=== PATIENT | male | born 1965 | race Caucasian/White ===

== ENCOUNTER 2021-10-11 01:20 | Emergency (ER) | payer OTHER ==
[2021-10-11] MEDS ORDERED: IPRATROPIUM/ALBUTEROL 3 ML NEB INH STA ×2 (01:27→01:34)
[2021-10-11] MEDS ORDERED: methylPREDNISolone SUCCINATE 125 MG/2 ML VIAL IVP STA (01:35)
[2021-10-11] MEDS ORDERED: ALBUTEROL NEB 2.5 MG/3 ML INH STA (01:38)
[2021-10-11] MEDS ORDERED: IPRATROPIUM/ALBUTEROL 3 ML NEB INH ONE (01:38)
[2021-10-11 01:57] LABS: BASOPHILS % (AUTO) 0.8 %; HCT - HEMATOCRIT 51.8 % (42.0-52.0); HGB - HEMOGLOBIN 17.9 g/dL (14.0-18.0); LYMPHOCYTES % (AUTO) 30.1 %; MEAN CORPUSCULAR HEMOGLOBIN 31.7 pg (27.0-31.0); MEAN CORPUSCULAR HGB CONC 34.6 g/dL (32.0-36.0); MEAN CORPUSCULAR VOLUME 91.7 fL (80.0-94.0); MEAN PLATELET VOLUME 9.3 fL (7.4-11.4); MONOCYTES % (AUTO) 7.6 %; NEUTROPHILS % (AUTO) 50.2 %; PLT - PLATELET COUNT 245 10^3/uL (130-450); RED BLOOD COUNT 5.65 10^6/uL (4.70-6.10); RED CELL DISTRIBUTION WIDTH 11.8 % (12.0-15.0); WHITE BLOOD COUNT 10.1 x10^3/uL (4.8-10.8)
[2021-10-11 02:00] LABS: ABNORMAL LYMPHS % (MANUAL) 0 %; BAND NEUTROPHILS % (MANUAL) 0 %
[2021-10-11 02:09] LABS: ALBUMIN 4.8 g/dL (3.2-5.5); ALBUMIN/GLOBULIN RATIO 1.6 (1.0-2.2); BILIRUBIN,TOTAL 0.8 mg/dL (0.2-1.0); CALCIUM 9.6 mg/dL (8.5-10.3); POTASSIUM 3.8 mmol/L (3.5-5.0); TOTAL PROTEIN 7.8 g/dL (6.7-8.2)
[2021-10-11] MEDS: ALBUTEROL NEB 2.5 MG/3 ML INH STA (02:12)
[2021-10-11] MEDS ORDERED: ALBUTEROL NEB 2.5 MG/3 ML INH ONE (02:19)
[2021-10-11 02:43] LABS: DIFFERENTIAL COMMENT MANUAL DIFFERENTIAL; EOSINOPHILS # (MANUAL) 1.3 10^3/uL (0-0.7); LYMPHOCYTES # (MANUAL) 3.1 10^3/uL (1.5-3.5); LYMPHOCYTES % (MANUAL) 31 %; MONOCYTES # (MANUAL) 0.7 10^3/uL (0.0-1.0); NEUTROPHILS # (MANUAL) 4.9 10^3/uL (1.5-6.6); PLATELET ESTIMATE, MANUAL NORMAL (130-450,000) (NORMAL); PLATELET MORPHOLOGY NORMAL APPEARANCE (NORMAL); RBC MORPHOLOGY (MULTIPLE) NORMAL APPEARANCE (NORMAL); WBC MORPHOLOGY (MULTIPLE) NORMAL APPEARANCE (NORMAL)
--- NOTE | 2021-10-11 03:23 | ED Physician Documentation ---
History of Present Illness - Stated complaint Stated Complaint: SOA - Chief complaint Chief Complaint: Resp - History obtained from History obtained from: Patient - Additonal information Additional information: Patient is a 56-year-old with a history significant for Asthma in childhood, previous tobacco abuse presenting for evaluation of shortness of breath. Patient reports symptoms have been ongoing for the last month with no improvement with inhaler use. This evening he bathed his cat and does have cat allergies and his breathing became worse. Patient reports that during this time of year his breathing Becomes worse With the pollen. Reports nonproductive cough. He denies chest pain, fever, abdominal pain, vomiting or diarrhea. He has not smoked in several years. He does not use home oxygen.He has been vaccinated for COVID-19. Review of Systems Constitutional: denies: Fever Nose: denies: Congestion Throat: denies: Sore throat Cardiac: denies: Chest pain / pressure Respiratory: reports: Dyspnea, Cough GI: denies: Abdominal Pain, Vomiting : denies: Dysuria Skin: denies: Rash Musculoskeletal: denies: Back pain Neurologic: denies: Headache PD PAST MEDICAL HISTORY - Past Medical History Past Medical History: Yes Cardiovascular: None Respiratory: Asthma Neuro: None Endocrine/Autoimmune: None GI: None : None HEENT: None Psych: None Musculoskeletal: None Derm: None - Present Medications Home Medications: Ambulatory Orders Medication Instructions Recorded Confirmed Albuterol Sulf [Ventolin Hfa 1 - 2 puffs INH Q4HR PRN #1 inhaler 10/11/21 Inhaler] predniSONE [Deltasone] 60 mg PO DAILY 5 Days #15 tablet 10/11/21 - Allergies Allergies/Adverse Reactions: Allergies Allergy/AdvReac Type Severity Reaction Status Date / Time No Known Drug Allergies Allergy Verified 10/11/21 01:30 - Social History Does the pt smoke?: No Smoking Status: Never smoker Does the pt have substance abuse?: No - Immunizations Immunizations are current?: No - POLST Patient has POLST: No PD ED PE NORMAL - General General: Alert and oriented X 3, Other (Tachypneic, Mild distress). No: No acute distress - HEENT HEENT: Atraumatic, Pharynx benign - Neck Neck: Supple, no meningeal sign - Cardiac Cardiac: No murmur, Strong equal pulses, Other (Tachycardic, regular rhythm) - Respiratory Respiratory: Other (Tachypneic mild respiratory distress,Significant wheezing throughout lung jordan with poor air entry). No: No respiratory distress, Clear bilaterally - Abdomen Abdomen: Normal bowel sounds, Soft, Non tender - Derm Derm: No rash - Extremities Extremities: No edema - Neuro Neuro: No motor deficit, Normal speech - Psych Psych: Normal mood, Normal affect Results - Vitals Vitals: Vital Signs - 24 hr 10/11/21 10/11/21 10/11/21 01:26 01:30 01:38 Temperature 35.9 C L Heart Rate 124 H 119 H 126 H Respiratory 25 H 20 23 Rate Blood Pressure 193/102 H 193/102 H O2 Saturation 88 L 91 L 10/11/21 10/11/21 10/11/21 01:53 02:02 02:12 Temperature Heart Rate 125 H 125 H 128 H Respiratory 22 26 H 26 H Rate Blood Pressure O2 Saturation 95 10/11/21 10/11/21 10/11/21 02:13 02:47 02:56 Temperature Heart Rate 128 H 116 H 115 H Respiratory 24 19 17 Rate Blood Pressure 143/100 H O2 Saturation 95 94 92 10/11/21 10/11/21 10/11/21 02:57 03:24 04:00 Temperature Heart Rate 115 H 111 H 101 H Respiratory 18 20 Rate Blood Pressure 143/100 H 142/95 H 153/91 H O2 Saturation 93 92 93 10/11/21 10/11/21 04:10 04:12 Temperature 36.1 C L Heart Rate Respiratory 20 Rate Blood Pressure O2 Saturation Oxygen O2 Source Room air Oxygen Flow Rate 3 - EKG (time done) 0220 Rate: Rate (enter#) (123) Rhythm: Sinus tachycardia [place]: Normal Ischemia: No: ST elevation c/w ischemia Compare to prior EKG: Old EKG unavailable - Labs Labs: Laboratory Tests 10/11/21 10/11/21 10/11/21 01:52 01:52 01:52 WBC 10.1 RBC 5.65 Hgb 17.9 Hct 51.8 MCV 91.7 MCH 31.7 H MCHC 34.6 RDW 11.8 L Plt Count 245 MPV 9.3 Neut # (Auto) Not Reportable Lymph # (Auto) Not Reportable [place] # (Auto) Not Reportable Eos # (Auto) Not Reportable Baso # (Auto) Not Reportable Absolute Nucleated RBC Not Reportable Total Counted 100 Band Neuts % (Manual) 0 Abnorm Lymph % (Manual) 0 Nucleated RBC % Not Reportable Neutrophils # (Manual) 4.9 Lymphocytes # (Manual) 3.1 Monocytes # (Manual) 0.7 Eosinophils # (Manual) 1.3 H Basophils # (Manual) 0.0 Differential Comment MANUAL DIFFERENTIAL WBC Morphology NORMAL APPEARANCE Platelet Estimate NORMAL (130-450,000) Platelet Morphology NORMAL APPEARANCE RBC Morph Micro Appear NORMAL APPEARANCE Sodium 139 Potassium 3.8 Chloride 101 Carbon Dioxide 24 Anion Gap 14.0 H BUN 17 Creatinine 1.0 Estimated GFR (MDRD) 77 L Glucose 127 H Calcium 9.6 Total Bilirubin 0.8 AST 34 ALT 40 Alkaline Phosphatase 85 Troponin I High Sens 18.9 Total Protein 7.8 Albumin 4.8 Globulin 3.0 Albumin/Globulin Ratio 1.6 SARS-CoV-2 (PCR) 10/11/21 02:32 WBC RBC Hgb Hct MCV MCH MCHC RDW Plt Count MPV Neut # (Auto) Lymph # (Auto) [place] # (Auto) Eos # (Auto) Baso # (Auto) Absolute Nucleated RBC Total Counted Band Neuts % (Manual) Abnorm Lymph % (Manual) Nucleated RBC % Neutrophils # (Manual) Lymphocytes # (Manual) Monocytes # (Manual) Eosinophils # (Manual) Basophils # (Manual) Differential Comment WBC Morphology Platelet Estimate Platelet Morphology RBC Morph Micro Appear Sodium Potassium Chloride Carbon Dioxide Anion Gap BUN Creatinine Estimated GFR (MDRD) Glucose Calcium Total Bilirubin AST ALT Alkaline Phosphatase Troponin I High Sens Total Protein Albumin Globulin Albumin/Globulin Ratio SARS-CoV-2 (PCR) NOT DETECTED PD MEDICAL DECISION MAKING - ED course Complexity details: reviewed results, re-evaluated patient, d/w patient ED course: Patient presenting in respiratory distress with tachypnea, significant wheezing and labored breathing. Patient was given numerous rounds of nebs with improvement in his symptoms. Patient shortly required oxygen but was able to ambulate without drop in oxygen saturation below 92%. Patient felt significantly better. Labs were reassuring without significant abnormalities. No leg swelling or other known risk factors for PE or DVT. Chest x-ray is clear. Patient's trigger for this episode appears to be related to bathing his cat which she has known allergies to.Denies change in sputum or increase in sputum to suggest need for antibiotics. Patient is given prescriptions for prednisone and albuterol and counseled on need for close follow-up with his primary care doctor. Departure - Departure Disposition: 01 Home, Self Care Clinical Impression: COPD exacerbation Condition: Stable Instructions: ED COPD Flare Prescriptions: Albuterol Sulf [Ventolin Hfa Inhaler] 1 - 2 puffs INH Q4HR PRN #1 inhaler PRN Reason: Shortness Of Air/Wheezing predniSONE [Deltasone] 60 mg PO DAILY 5 Days #15 tablet Comments: Ryan Davis you were evaluated for difficulty breathing which I believe is related to a COPD exacerbation. COPD is similar to asthma. It responds well to breathing treatments or inhalers and oral steroids. Your labs were overall very reassuring and your COVID test was negative. Your heart did not show signs of stress. Your symptoms improved with the treatments given and at this time you do not need to be hospitalized. However you should continue taking the steroids for the next 5 days and a prescription has been sent to the [facility] in [place]. I have also sent an inhaler to this pharmacy.You need close follow-up with your primary care doctor through the [place]. If it anytime you feel that your breathing is becoming worse or you have any new symptoms such as chest pain, fever, any concerns, return to the emergency department. Please consider calling 911 and not [address] yourself. Discharge Date/Time: 10/11/21 04:25
[2021-10-11 04:11] VITALS: BP 153/91
--- NOTE | 2021-10-11 09:30 | XRAY Report ---
PROCEDURE: Chest 1 View X-Ray INDICATIONS: SOB TECHNIQUE: One view of the chest was acquired. COMPARISON: None. FINDINGS: Surgical changes and devices: None. Lungs and pleura: No pleural effusions or pneumothorax. Mild interstitial prominence. Lungs are lizz r. Mediastinum: Mediastinal contours appear normal. Heart size is normal. Bones and chest wall: No suspicious bony lesions. Overlying soft tissues appear unremarkable. IMPRESSION: No acute cardiopulmonary disease. No significant discrepancy with the preliminary interpretation. Reviewed by: Cheryl Powers MD on 10/11/2021 8:28 AM [facility] Approved by: Cheryl Powers MD on 10/11/2021 8:28 AM [facility] Station ID: [id number]
== END 2021-10-11 04:25 | disposition home or self-care (01) ==
LOC: ED 01:20
DX: J44.1 Chronic obstructive pulmonary disease with (acute) exacerbation (principal)
CPT/HCPCS: 36415; 80053; 84484; 85025; 93005; 94640; 96374; 99284

== ENCOUNTER 2023-06-07 09:34 | Emergency (ER) | payer OTHER ==
--- NOTE | 2023-06-07 09:55 | ED Physician Documentation ---
History of Present Illness - Stated complaint Stated Complaint: HIGH BP,MED REFILL - Chief complaint Chief Complaint: General - History obtained from History obtained from: Patient - History of Present Illness Timing: How many days ago (ran out of BP med 3 days ago but was taking half tablet for week prior due to running out. Trying to get appt with new PCP but insurance not effective as yet.) Review of Systems Musculoskeletal: denies: Extremity swelling Neurologic: denies: Generalized weakness, Headache PD PAST MEDICAL HISTORY - Past Medical History Cardiovascular: Hypertension Respiratory: Asthma Neuro: None Endocrine/Autoimmune: None GI: None : None HEENT: None Psych: None Musculoskeletal: None Derm: None - Past Surgical History Past Surgical History: Yes - Present Medications Home Medications: Ambulatory Orders Medication Instructions Recorded Confirmed Losartan [Cozaar] 50 mg PO DAILY #90 tablet 04/01/23 06/07/23 Albuterol Sulf [Ventolin Hfa 1 - 2 puffs INH Q4HR PRN #1 each 06/07/23 Inhaler] Losartan [Cozaar] 50 mg PO DAILY #90 tablet 06/07/23 - Allergies Allergies/Adverse Reactions: Allergies Allergy/AdvReac Type Severity Reaction Status Date / Time No Known Drug Allergies Allergy Verified 06/07/23 09:47 - Social History Does the pt smoke?: No Smoking Status: Never smoker Does the pt drink ETOH?: No Does the pt have substance abuse?: No - Immunizations Immunizations are current?: Yes - POLST Patient has POLST: No PD ED PE NORMAL - Vitals Vital signs reviewed: Yes - General General: Alert and oriented X 3, No acute distress, Well developed/nourished - Extremities Extremities: Normal ROM s pain - Neuro Neuro: Alert and oriented X 3, No motor deficit, Normal speech Results - Vitals Vitals: Vital Signs - 24 hr 06/07/23 06/07/23 09:40 10:42 Temperature 36.6 C Heart Rate 68 66 Respiratory 16 18 Rate Blood Pressure 189/98 H 170/102 H O2 Saturation 97 96 Oxygen O2 Source Room air PD Medical Decision Making - ED course Complexity details: considered differential (ran out of BP meds and not having new PCP yet due to insurance changes, and then will have appt time. Give Rx for his med as well as Albuterol MDI for intermittent wheeze/RAD. ), d/w patient Departure - Departure Disposition: 01 Home, Self Care Clinical Impression: Hypertension, Asthma, Difficulty refilling prescriptions Condition: Stable Record reviewed to determine appropriate education?: Yes Prescriptions: Albuterol Sulf [Ventolin Hfa Inhaler] 1 - 2 puffs INH Q4HR PRN #1 each PRN Reason: Shortness Of Air/Wheezing Losartan [Cozaar] 50 mg PO DAILY #90 tablet Comments: Use albuterol inhaler 2 to 3 puffs every 4-6 hours if needed for wheezing/asthma. Continue with your losartan medication daily for blood pressure as usual. Continue with your good healthy habits of exercise and low-salt diet and healthy eating. Good for you. Follow-up with the new primary care as your new insurances allow etc. I sent your prescription to the [facility] pharmacy in [place]. Forms: PCP List Discharge Date/Time: 06/07/23 10:43
[2023-06-07] MEDS ORDERED: LOSARTAN 50 MG TABLET PO STA (10:31)
[2023-06-07 10:45] VITALS: BP 170/102; O2SAT 96
== END 2023-06-07 10:43 | disposition home or self-care (01) ==
LOC: ED 09:34
DX: Z76.0 Encounter for issue of repeat prescription (principal); I10 Essential (primary) hypertension; T46.5X6A Underdosing of other antihypertensive drugs, initial encounter; Z91.128 Patient's intentional underdosing of medication regimen for other reason; J45.909 Unspecified asthma, uncomplicated
CPT/HCPCS: 99282; 99283; A9270

== ENCOUNTER 2023-07-22 16:59 | Emergency (ER) | payer OTHER ==
--- NOTE | 2023-07-22 17:26 | ED Physician Documentation ---
PD HPI DYSPNEA - Stated complaint Stated Complaint: HIGH BP - Chief complaint Chief Complaint: General - History obtained from History obtained from: Patient - History of Present Illness Timing - onset: How many days ago (has noted BP to be more elevated the past several days. Today was 193 systolic. No chest pain nor headache. He says he gets ringing in ears when it it high and did have that. He had tried reducing his Losartan due to running out. Does not yet have new insurance to get new PCP.) Timing - onset during: Rest, Light activity Timing - details: Waxing and waning Inciting event(s): Out of meds. No: URI Associated symptoms: Wheezing. No: Chest pain / discomfort, Palpitations, Bilateral edema Similar symptoms before: Diagnosis (elevated BP and recent ED visit for same and was improved on new BP med. Uses Albuterol nhaler PRN with good effect too. Trying to get new PCP but can't until new insuracne from [place] starts. Shoulde be mid August.) Review of Systems Eyes: denies: Decreased vision Cardiac: denies: Chest pain / pressure, Palpitations Respiratory: denies: Dyspnea Musculoskeletal: denies: Extremity swelling PD PAST MEDICAL HISTORY - Past Medical History Cardiovascular: Hypertension Respiratory: Asthma Neuro: None Endocrine/Autoimmune: None GI: None : None HEENT: None Psych: None Musculoskeletal: None Derm: None - Past Surgical History Past Surgical History: Yes - Present Medications Home Medications: Ambulatory Orders Medication Instructions Recorded Confirmed Albuterol Sulf [Ventolin Hfa 1 - 2 puffs INH Q4HR PRN #1 each 06/07/23 07/22/23 Inhaler] Losartan [Cozaar] 50 mg PO DAILY #90 tablet 06/07/23 07/22/23 Albuterol Sulf [Ventolin Hfa 2 - 3 puffs INH Q4HR PRN #1 each 07/22/23 Inhaler] Losartan [Cozaar] 50 mg PO BID #90 tablet 07/22/23 Albuterol Sulf [Ventolin Hfa 2 puffs INH QID PRN #1 each 07/23/23 Inhaler] - Allergies Allergies/Adverse Reactions: Allergies Allergy/AdvReac Type Severity Reaction Status Date / Time No Known Drug Allergies Allergy Verified 07/22/23 17:08 - Social History Does the pt smoke?: No Smoking Status: Never smoker Does the pt drink ETOH?: No Does the pt have substance abuse?: No - Immunizations Immunizations are current?: Yes - POLST Patient has POLST: No PD ED PE NORMAL - Vitals Vital signs reviewed: Yes (BP has decreassed without intervention here. Now 162/93.) - General General: Alert and oriented X 3, No acute distress, Well developed/nourished - Cardiac Cardiac: RRR, No murmur - Respiratory Respiratory: No respiratory distress - Derm Derm: Normal color, Warm and dry - Extremities Extremities: No edema - Neuro Neuro: Alert and oriented X 3, No motor deficit, Normal speech Results - Vitals Vitals: Oxygen O2 Source Room air PD Medical Decision Making - ED course Complexity details: considered differential (elevated BP. Was running low on meds so cut to half dose with BP more elevated. Was 130-140s with 100 mg daily. Can give Rx for him again until seen by PCP who can take over. ), d/w patient Departure - Departure Disposition: 01 Home, Self Care Clinical Impression: Hypertension Qualifiers: Hypertension type: unspecified Qualified Code(s): I10 - Essential (primary) hypertension Condition: Stable Record reviewed to determine appropriate education?: Yes Prescriptions: Albuterol Sulf [Ventolin Hfa Inhaler] 2 - 3 puffs INH Q4HR PRN #1 each PRN Reason: Shortness Of Air/Wheezing Losartan [Cozaar] 50 mg PO BID #90 tablet Albuterol Sulf [Ventolin Hfa Inhaler] 2 puffs INH QID PRN #1 each PRN Reason: Shortness Of Air/Wheezing Comments: Your blood pressure has come down with your medications from home. Most recent 1 was 151/99. It would seem that you should continue with the 100 mg of losartan for best blood pressure control. Number to refill prescription for you and sent it to your preferred pharmacy. I also wrote for your albuterol inhaler. Presumably your insurance will allow for obtaining a longitudinal primary care provider in the near future and have them continue with the medications and treatment plans. Return if needed. Low-salt diet and moderation in alcohol. Forms: PCP List Discharge Date/Time: 07/22/23 17:55
[2023-07-22 17:58] VITALS: BP 157/99; O2SAT 96
== END 2023-07-22 17:55 | disposition home or self-care (01) ==
LOC: ED 16:59
DX: I10 Essential (primary) hypertension (principal)
CPT/HCPCS: 99282; 99283

== ENCOUNTER 2023-11-25 15:55 | Emergency (ER) | payer OTHER ==
[2023-11-25 16:06] VITALS: BP 180/90; O2SAT 96
--- NOTE | 2023-11-25 16:51 | ED Physician Documentation ---
History of Present Illness - Stated complaint Stated Complaint: MED REFILL - Chief complaint Chief Complaint: General - History obtained from History obtained from: Patient - Additonal information Additional information: The patient comes to the emergency department chief complaint of needing a refill on his losartan. He takes 50 mg once daily for high blood pressure. He states it controls his blood pressure fairly well and keeps his systolic in the 130s and his diastolic in the 80s. He has been transitioning from the and states that he has been having a problem with his benefits. He has had to come here for his blood pressure meds to other times but he just got a new job a few months ago and is almost through the 90-day. Of getting established with his insurance. He states that after that he will be able to get a primary doctor. He states that right now the NH has him going to [place] which is difficult. No chest pain or shortness of breath. No headache. The patient st ates symptomatically he feels good. PD PAST MEDICAL HISTORY - Past Medical History Past Medical History: Yes Cardiovascular: Hypertension Respiratory: Asthma Neuro: None Endocrine/Autoimmune: None GI: None : None HEENT: None Psych: None Musculoskeletal: None Derm: None - Past Surgical History Past Surgical History: Yes - Present Medications Home Medications: Ambulatory Orders Medication Instructions Recorded Confirmed Albuterol Sulf [Ventolin Hfa 1 - 2 puffs INH Q4HR PRN #1 each 06/07/23 07/22/23 Inhaler] Losartan [Cozaar] 50 mg PO DAILY #90 tablet 06/07/23 07/22/23 Albuterol Sulf [Ventolin Hfa 2 - 3 puffs INH Q4HR PRN #1 each 07/22/23 Inhaler] Losartan [Cozaar] 50 mg PO BID #90 tablet 07/22/23 Albuterol Sulf [Ventolin Hfa 2 puffs INH QID PRN #1 each 07/23/23 Inhaler] Losartan [Cozaar] 50 mg PO DAILY 30 Days #30 tablet 10/26/23 Losartan [Cozaar] 50 mg PO DAILY #120 tablet 11/25/23 - Allergies Allergies/Adverse Reactions: Allergies Allergy/AdvReac Type Severity Reaction Status Date / Time No Known Drug Allergies Allergy Verified 11/25/23 15:59 - Social History Does the pt smoke?: No Smoking Status: Never smoker Does the pt drink ETOH?: No Does the pt have substance abuse?: No - Immunizations Immunizations are current?: Yes - POLST Patient has POLST: No PD ED PE NORMAL - Vitals Vital signs reviewed: Yes - General General: Alert and oriented X 3, No acute distress, Well developed/nourished - HEENT HEENT: Atraumatic, EOMI, Moist mucous membranes - Neck Neck: Supple, no meningeal sign - Cardiac Cardiac: RRR, No murmur - Respiratory Respiratory: No respiratory distress, Clear bilaterally - Derm Derm: Normal color, Warm and dry, No rash - Extremities Extremities: No deformity, No edema - Neuro Neuro: Other (Alert, grossly oriented.) - Psych Psych: Normal mood, Normal affect Results - Vitals Vitals: Vital Signs - 24 hr 11/25/23 15:59 Temperature 36.5 C Heart Rate 66 Respiratory 16 Rate Blood Pressure 180/90 H O2 Saturation 96 Oxygen O2 Source Room air PD Medical Decision Making - ED course Complexity details: reviewed old records, considered differential, d/w patient ED course: I have refilled the patient's medications. We have discussed the usual indications for return and the importance of follow-up. Departure - Departure Disposition: Home, Self Care Clinical Impression: Hypertension Qualifiers: Hypertension type: unspecified Qualified Code(s): I10 - Essential (primary) hypertension Condition: Stable Instructions: ED HTN Established Prescriptions: Losartan [Cozaar] 50 mg PO DAILY #120 tablet Comments: Your prescription has been electronically transmitted to the [facility] in [place].
== END 2023-11-25 16:50 | disposition home or self-care (01) ==
LOC: ED 15:55
DX: Z76.0 Encounter for issue of repeat prescription (principal); I10 Essential (primary) hypertension
CPT/HCPCS: 99281; 99282